=== PATIENT | male | born 1985 | race Caucasian/White ===

== ENCOUNTER 2016-08-19 10:32 | Emergency (ER) | payer SELFPAY ==
[2016-08-19 10:56] VITALS: BP 132/88
[2016-08-19] MEDS ORDERED: CEPHALEXIN 500 MG CAPSULE PO ONE (11:27)
[2016-08-19] MEDS ORDERED: SULFAMETHOXAZOLE/TRIMETHOPRIM 800-160 MG TABLET PO ONE (11:27)
[2016-08-19] MEDS ORDERED: IBUPROFEN 800 MG TABLET PO ONE (11:27)
--- NOTE | 2016-08-19 13:52 | ER Document Report ---
ED General - General Chief Complaint: Facial Swelling Stated Complaint: FACIAL SWELLING Time Seen by Provider: 08/19/16 11:19 Information source: Patient Cannot obtain history due to: Intoxicated, Uncooperative TRAVEL OUTSIDE OF THE [place] IN LAST 30 DAYS: No - HPI Patient complains to provider of: face drainage Onset: Other - unsure, possibly one week. Was originally 2 areas on his face that drained pus Onset/Duration: Gradual Quality of pain: No pain Associated symptoms: denies: Chills, Earache, Fever, Headache Exacerbated by: Denies Relieved by: Denies Similar symptoms previously: No Recently seen / treated by doctor: No Notes: Presents with a wound on the right part of the face and behind his right ear that is superficial with surrounding cellulitis - Related Data Allergies/Adverse Reactions: No Known Allergies Allergy (Verified 08/19/16 10:54) Past Medical History - Social History Smoking Status: Current Every Day Smoker Chew tobacco use (# tins/day): No Frequency of alcohol use: 2 beers this am Drug Abuse: None Family History: Malignancy Patient has suicidal ideation: No Patient has homicidal ideation: No Renal/ Medical History: Denies: Hx Peritoneal Dialysis Musculoskeltal Medical History: Reports Hx Arthritis - Immunizations Hx Diphtheria, Pertussis, Tetanus Vaccination: Yes Review of Systems - Review of Systems Notes: Unable to obtain medical history per patient given he is delayed while speaking. Discussed with his mother's medical history and she states that he has a learning disability and intellectual disability but denies any other medical history. She states that he is a chronic alcoholic -: Yes ROS unobtainable due to patient's medical condition Physical Exam - Vital signs Vitals: Temp Pulse Resp BP Pulse Ox 97.9 F 88 16 132/88 H 97 08/19/16 10:54 08/19/16 10:54 08/19/16 10:54 08/19/16 10:54 08/19/16 10:54 - General General appearance: Appears well, Alert In distress: None - HEENT Head: Normocephalic, Atraumatic. No: Abrasions, Dyer's sign, Ecchymosis, Open wounds, Racoon's eyes, Tenderness Eyes: Normal Conjunctiva: Normal Extraocular movements intact: Yes Eyelashes: Normal Pupils: PERRL Ears: Normal External canal: Normal Tympanic membrane: Normal Sinus: Normal Nasal: Normal Mouth/Lips: Normal Mucous membranes: Normal Teeth diagram: 1 - Dental caries and fractures are noted all throughout the mouth - Respiratory Respiratory status: No respiratory distress Chest status: Nontender Breath sounds: Normal Chest palpation: Normal - Cardiovascular Rhythm: Regular Heart sounds: Normal auscultation, S1 appreciated, S2 appreciated Murmur: No Gallop: None auscultated Pulses: Normal: Radial, Dorsalis pedis Normal capillary refill: Yes - Abdominal Inspection: Normal Distension: No distension Bowel sounds: Normal Tenderness: Nontender Organomegaly: No organomegaly - Extremities General upper extremity: Normal inspection, Nontender, Normal color, Normal ROM , Normal strength, Normal temperature General lower extremity: Normal inspection, Nontender, Normal color, Normal ROM , Normal strength, Normal temperature, Normal weight bearing. No: Alysa's sign - Neurological Neuro grossly intact: Yes Orientation: AAOx4 [place] Coma Scale Eye Opening: Spontaneous [place] Coma Scale Verbal: Oriented [place] Coma Scale Motor: Obeys Commands [place] Coma Scale Total: 15 Speech: Other - delayed Cranial nerves: Normal Cerebellar coordination: Normal Motor strength normal: LUE, RUE, LLE, RLE Additional motor exam normals: Equal electronic operator. No: Weakness Sensory: Normal - Psychological Associated symptoms: Flat affect - Skin Skin irregularity: other - abraision across the right cheeck with clear yellow drainage, area behind right ear with yellow purulent material. surrounding mild cellulitis Course - Re-evaluation Re-evalutation: 08/19/16 22:07 Patient is a 31-year-old male with hematoma stable, no acute distress afebrile. Patient appears to be altered for serum alcohol was sent and revealed to be a level of 248. CT of the head was normal, no evidence of leukocytosis or anemia noted on CBC. CMP without any evidence of hepatocellular damage, renal damage. Tox screen came back positive for amphetamines although patient denies any drug use. Site on the face concerning for cellulitis. Not sure of the mechanism of injury. Will treat with p.o. Keflex and Clinda. Patient has been discharged with a friend who is present at the bedside. - Vital Signs Vital signs: Temp Pulse Resp BP Pulse Ox 97.9 F 88 16 132/88 H 97 08/19/16 10:54 08/19/16 10:54 08/19/16 10:54 08/19/16 10:54 08/19/16 10:54 - Laboratory Result Diagrams: 08/19/16 11:35 08/19/16 13:45 Laboratory results interpreted by me: 08/19/16 08/19/16 11:35 13:45 RBC 4.16 L MCV 105 H MCH 35.6 H Monocytes % 14.5 H Potassium 3.5 L AST 61 H - Diagnostic Test Radiology reviewed: Image reviewed, Reports reviewed Discharge - Discharge Clinical Impression: Cellulitis Qualifiers: Site of cellulitis: face Qualified Code(s): L03.211 - Cellulitis of face Condition: Good Disposition: HOME, SELF-CARE Instructions: Cellulitis ([facility]), Chronic Alcoholism ([facility]), Acute Alcohol Intoxication ([facility]) Additional Instructions: Take your antibiotics as prescribed. Please follow-up with the physician listed below. If you do not live in [facility] please follow-up with the [facility] to get established with a community clinic for primary care. [facility] [address] [place] [id number] Prescriptions: Cephalexin Monohydrate [Keflex 500 mg Capsule] 500 mg PO QID #20 capsule Clindamycin HCl [Cleocin 150 mg Capsule] 150 mg PO TID 7 Days Referrals: [facility] [NO LOCAL MD] - Follow up as needed
[2016-08-19 14:33] LABS: ALANINE AMINOTRANSFERASE 62 U/L (21-72); ALBUMIN 4.5 g/dL (3.5-5.0); ALKALINE PHOSPHATASE 66 U/L (38-126); ANION GAP 16 (5-19); ASPARTATE AMINO TRANSFERASE 61 U/L (17-59); BILIRUBIN,DIRECT 0.3 mg/dL (0.0-0.4); BILIRUBIN,TOTAL 1.3 mg/dL (0.2-1.3); BLOOD UREA NITROGEN 10 mg/dL (7-20); CALCIUM 9.3 mg/dL (8.4-10.2); CARBON DIOXIDE 22 mmol/L (22-30); CHLORIDE 100 mmol/L (98-107); CREATININE RESULT 0.79 mg/dL (0.52-1.25); GLUCOSE 77 mg/dL (75-110); POTASSIUM 3.5 mmol/L (3.6-5.0); SODIUM 138.2 mmol/L (137-145); TOTAL PROTEIN 7.5 g/dL (6.3-8.2)
--- NOTE | 2016-08-19 14:33 | RADIOLOGY REPORT (SQ) ---
EXAM DESCRIPTION: CT HEAD WITHOUT COMPLETED DATE/TIME: 08/19/2016 2:18 pm REASON FOR STUDY: lethargic COMPARISON: None. TECHNIQUE: Axial images acquired through the brain without intravenous contrast. Images reviewed wi th bone, brain and subdural windows. Images stored on PACS. All CT scanners at this facility use dose modulation, iterative reconstruction, and/or weight based d osing when appropriate to reduce radiation dose to as low as reasonably achievable (ALARA). [facility]: Dose Right [facility]: CareDose [facility]: Dose Right [facility]: Teradose 4D [facility]: Smart Bokecc RADIATION DOSE: Up-to-date CT equipment and radiation dose reduction techniques were employed. CTDIv ol: 64.6 mGy. DLP: 1680 mGy-cm. mGy. LIMITATIONS: None. FINDINGS: VENTRICLES: Normal size and contour. CEREBRUM: No masses. No hemorrhage. No midline shift. Normal nina/white matter differentiation. N o evidence for acute infarction. CEREBELLUM: No masses. No hemorrhage. No alteration of density. No evidence for acute infarction. EXTRAAXIAL SPACES: No fluid collections. No masses. ORBITS AND GLOBE: No intra- or extraconal masses. Normal contour of globe without masses. CALVARIUM: No fracture. PARANASAL SINUSES: Minimal mucosal thickening. No air-fluid levels. SOFT TISSUES: No mass or hematoma. OTHER: No other significant finding. IMPRESSION: 1. Normal-appearing brain. 2. Minimal mucosal thickening in the sinuses. TECHNICAL DOCUMENTATION: JOB ID: [id number] Quality ID # [id number]: Final reports with documentation of one or more dose reduction techniques (e.g., Au tomated exposure control, adjustment of the mA and/or kV according to patient size, use of iterative reconstruction technique) 2010 [employer]- All Rights Reserved
[2016-08-19 14:40] LABS: ABSOLUTE BASOPHILS # (AUTO) 0.1 10^3/uL (0.0-0.2); ABSOLUTE EOSINOPHILS # (AUTO) 0.2 10^3/uL (0.0-0.6); ABSOLUTE LYMPHOCYTES (AUTO) 2.1 10^3/uL (0.5-4.7); ABSOLUTE MONOCYTES (AUTO) 1.3 10^3/uL (0.1-1.4); ABSOLUTE NEUT (AUTO) 5.2 10^3/uL (1.7-8.2); BASOPHILS % (AUTO) 0.8 % (0-2); EOSINOPHILS % (AUTO) 2.7 % (0-6); HEMATOCRIT 43.7 % (37.9-51.0); HEMOGLOBIN 14.8 g/dL (13.5-17.0); HGB HCT DIFFERENCE 0.7; LYMPHOCYTES % (AUTO) 23.2 % (13-45); MEAN CORPUSCULAR HEMOGLOBIN 35.6 pg (27.0-33.4); MEAN CORPUSCULAR HGB CONC 33.8 g/dL (32.0-36.0); MEAN CORPUSCULAR VOLUME 105 fl (80-97); MONOCYTES % (AUTO) 14.5 % (3-13); RED BLOOD COUNT 4.16 10^6/uL (4.35-5.55); RED CELL DISTRIBUTION WIDTH 12.4 % (11.5-14.0); SEGMENTED NEUTROPHILS % (AUTO) 58.8 % (42-78); WHITE BLOOD COUNT 8.9 10^3/uL (4.0-10.5)
[2016-08-19 15:14] LABS: APPEARANCE,URINE CLEAR; BILIRUBIN,URINE NEGATIVE (NEGATIVE); GLUCOSE, URINE NEGATIVE (NEGATIVE); KETONES,URINE NEGATIVE (NEGATIVE); LEUKOCYTE ESTERASE,URINE NEGATIVE (NEGATIVE); NITRITE,URINE NEGATIVE (NEGATIVE); PROTEIN,URINE NEGATIVE (NEGATIVE); URINE SPECIFIC GRAVITY 1.003; UROBILINOGEN,URINE NEGATIVE mg/dL (<2.0)
[2016-08-19 15:30] LABS: URINE BARBITURATES SCREEN NEGATIVE; URINE METHADONE SCREEN NEGATIVE; URINE OPIATES LOW NEGATIVE; URINE PHENCYCLIDINE SCREEN NEGATIVE
== END 2016-08-19 15:50 | disposition home or self-care (01) ==
LOC: ER 10:32
DX: L03.211 Cellulitis of face (principal); K02.9 Dental caries, unspecified; F17.200 Nicotine dependence, unspecified, uncomplicated
CPT/HCPCS: 36415; 70450; 80053; 80307; 81001; 82140; 85025; 99284

== ENCOUNTER 2019-02-28 14:16 | Emergency (ER) | payer SELFPAY ==
[2019-02-28 14:35] VITALS: BP 138/90
--- NOTE | 2019-02-28 14:50 | ER Document Report ---
ED Medical Screen (RME) - General Chief Complaint: Leg Swelling Stated Complaint: LEG SWELLING Time Seen by Provider: 02/28/19 14:42 Mode of Arrival: Wheelchair Information source: Patient Notes: This 33-year-old male presents emergency department with complaints of left foot pain for the past 3 months. Patient is very emotional tearful. Reports [place] in [place]. He denies trauma denies history of gout. Patient does report he has been drinking ETOH today. Left foot swollen tender to touch. I have greeted and performed a rapid initial assessment of this patient. A comprehensive ED assessment and evaluation of the patient, analysis of test results and completion of the medical decision making process will be conducted by additional ED providers. TRAVEL OUTSIDE OF THE [place] IN LAST 30 DAYS: No - Related Data Allergies/Adverse Reactions: No Known Allergies Allergy (Verified 08/19/16 10:54) Past Medical History - Social History Frequency of alcohol use: Heavy Renal/ Medical History: Denies: Hx Peritoneal Dialysis Musculoskeltal Medical History: Reports Hx Arthritis - Immunizations Hx Diphtheria, Pertussis, Tetanus Vaccination: Yes Physical Exam - Vital signs Vitals: Temp Pulse Resp BP Pulse Ox 97.8 F 87 16 138/90 H 98 02/28/19 14:28 02/28/19 14:28 02/28/19 14:28 02/28/19 14:28 02/28/19 14:28 Course - Vital Signs Vital signs: Temp Pulse Resp BP Pulse Ox 97.8 F 87 16 138/90 H 98 02/28/19 14:28 02/28/19 14:28 02/28/19 14:28 02/28/19 14:28 02/28/19 14:28
[2019-02-28 15:24] LABS: ABSOLUTE BASOPHILS # (AUTO) 0.1 10^3/uL (0.0-0.2); ABSOLUTE EOSINOPHILS # (AUTO) 0.2 10^3/uL (0.0-0.6); ABSOLUTE LYMPHOCYTES (AUTO) 3.2 10^3/uL (0.5-4.7); ABSOLUTE MONOCYTES (AUTO) 0.6 10^3/uL (0.1-1.4); ABSOLUTE NEUT (AUTO) 4.6 10^3/uL (1.7-8.2); BASOPHILS % (AUTO) 1.1 % (0-2); LYMPHOCYTES % (AUTO) 36.5 % (13-45); MEAN CORPUSCULAR HEMOGLOBIN 37.2 pg (27.0-33.4); MEAN CORPUSCULAR HGB CONC 34.8 g/dL (32.0-36.0); MEAN CORPUSCULAR VOLUME 107 fl (80-97); MONOCYTES % (AUTO) 7.3 % (3-13); PLATELET COUNT 281 10^3/uL (150-450); RED BLOOD COUNT 4.32 10^6/uL (4.35-5.55); RED CELL DISTRIBUTION WIDTH 13.1 % (11.5-14.0); SEGMENTED NEUTROPHILS % (AUTO) 53.1 % (42-78); TOTAL CELLS COUNTED % (AUTO) 100 %; WHITE BLOOD COUNT 8.7 10^3/uL (4.0-10.5)
--- NOTE | 2019-02-28 15:39 | RADIOLOGY REPORT (SQ) ---
EXAM DESCRIPTION: FOOT LEFT COMPLETE COMPLETED DATE/TIME: 02/28/2019 2:20 pm REASON FOR STUDY: pain swelling for 3 months COMPARISON: None. NUMBER OF VIEWS: Three views. TECHNIQUE: AP, lateral and oblique radiographic images acquired of the left foot. LIMITATIONS: None. FINDINGS: MINERALIZATION: Normal. BONES: No acute fracture or dislocation. No worrisome bone lesions. JOINTS: No effusions. SOFT TISSUES: No soft tissue swelling. No foreign body. OTHER: No other significant finding. IMPRESSION: NEGATIVE STUDY OF THE LEFT FOOT. NO RADIOGRAPHIC EVIDENCE OF ACUTE INJURY. TECHNICAL DOCUMENTATION: JOB ID: [id number] [employer]- All Rights Reserved Reading location - IP/workstation name: [email or web address]
[2019-02-28 15:40] LABS: ALBUMIN 4.9 g/dL (3.5-5.0); ALCOHOL 292 mg/dL (NONE DETECTED); ALKALINE PHOSPHATASE 78 U/L (38-126); ANION GAP 14 (5-19); ASPARTATE AMINO TRANSFERASE 62 U/L (17-59); BILIRUBIN,DIRECT 0.3 mg/dL (0.0-0.4); BILIRUBIN,TOTAL 0.4 mg/dL (0.2-1.3); BLOOD UREA NITROGEN 7 mg/dL (7-20); CALCIUM 9.9 mg/dL (8.4-10.2); CARBON DIOXIDE 28 mmol/L (22-30); CHLORIDE 103 mmol/L (98-107); GLUCOSE 90 mg/dL (75-110); TOTAL PROTEIN 8.4 g/dL (6.3-8.2)
--- NOTE | 2019-02-28 16:39 | ER Document Report ---
ED General - General Chief Complaint: Leg Swelling Stated Complaint: LEG SWELLING Time Seen by Provider: 02/28/19 14:42 Mode of Arrival: Wheelchair Information source: Patient TRAVEL OUTSIDE OF THE [place] IN LAST 30 DAYS: No - HPI Onset: Other - patient has had left lateral foot pain for months and left foot swelling for several days Onset/Duration: Gradual Quality of pain: Pressure Severity: Moderate Pain Level: 2 Associated symptoms: Other - left lateral foot/5th toe pain, left foot swelling Exacerbated by: Movement, Walking, Other - palpation of left foot Relieved by: Remaining still Similar symptoms previously: Yes Recently seen / treated by doctor: No Notes: 33 year old male with no known PMH here for pain in his left lateral foot/5th toe for months and swelling in his left foot for days. The patient denies trauma to his left foot. The patient denies erythema or warmth of any joints in his lower extremity. The patient denies fevers, chills, sweats, nausea, vomiting. The patient can ambulate but he has some pain doing so. - Related Data Allergies/Adverse Reactions: No Known Allergies Allergy (Verified 08/19/16 10:54) Past Medical History - General Information source: Patient - Social History Smoking Status: Current Every Day Smoker Frequency of alcohol use: Heavy Drug Abuse: None Lives with: Alone Family History: Reviewed & Not Pertinent, Malignancy Patient has suicidal ideation: No Patient has homicidal ideation: No - Past Medical History Cardiac Medical History: Reports: None Pulmonary Medical History: Reports: None EENT Medical History: Reports: None Neurological Medical History: Reports: None Endocrine Medical History: Reports: None Renal/ Medical History: Reports: None. Denies: Hx Peritoneal Dialysis Malignancy Medical History: Reports None GI Medical History: Reports: None Musculoskeletal Medical History: Reports Hx Arthritis Skin Medical History: Reports None Psychiatric Medical History: Reports: None Traumatic Medical History: Reports: None Infectious Medical History: Reports: None Past Surgical History: Reports: None - Immunizations Hx Diphtheria, Pertussis, Tetanus Vaccination: Yes Review of Systems - Review of Systems Constitutional: No symptoms reported EENT: No symptoms reported Cardiovascular: No symptoms reported Respiratory: No symptoms reported Gastrointestinal: No symptoms reported Genitourinary: No symptoms reported Male Genitourinary: No symptoms reported Musculoskeletal: Other - left foot swelling, left lateral foot/5th toe pain Skin: No symptoms reported Hematologic/Lymphatic: No symptoms reported Neurological/Psychological: No symptoms reported Physical Exam - Vital signs Vitals: Temp Pulse Resp BP Pulse Ox 97.8 F 87 16 138/90 H 98 02/28/19 14:28 02/28/19 14:28 02/28/19 14:02/28/19 14:02/28/19 14:28 - Notes Notes: GENERAL: Not well groomed, well-nourished and in no acute distress. HEAD: Atraumatic, normocephalic. EYES: Pupils equal round and reactive to light, extraocular movements intact, sclera anicteric, conjunctiva are normal. ENT: Nares patent, oropharynx clear without exudates. Moist mucous membranes. NECK: Normal range of motion, supple without lymphadenopathy or JVD. LUNGS: Breath sounds clear to auscultation bilaterally and equal. No wheezes rales or rhonchi. HEART: Regular rate and rhythm without murmurs, rubs or gallops. ABDOMEN: Soft, nontender, normoactive bowel sounds. No guarding, no rebound. No masses appreciated. EXTREMITIES: Left foot is swollen and has pitting edema to just above his ankle. No erythema or warmth. No bony tenderness on palpation. Normal range of motion. No clubbing or cyanosis. 2+ DP and PT pulses on left NEUROLOGICAL: Cranial nerves II through XII grossly intact. Normal speech, normal gait. PSYCH: Normal mood, normal affect. SKIN: Warm, Dry, normal turgor, no rashes or lesions noted. Course - Re-evaluation Re-evalutation: 02/28/19 16:53 The patient has had pain in his left lateral foot for months. His left foot has been swollen for several days and this is new for him. Patient denies trauma. Gout seems unlikely since no redness or warmth of any joint. Sprain or strain is possible and so is osteoarthritis. Will have patient use RICE (rest, ice, compression, elevation) and will prescribe NSAIDs. Xrays show no acute process. Will refer to Orthopedics. 02/28/19 16:57 - Vital Signs Vital signs: Temp Pulse Resp BP Pulse Ox 97.8 F 87 16 138/90 H 98 02/28/19 14:28 02/28/19 14:28 02/28/19 14:02/28/19 14:02/28/19 14:28 - Laboratory Result Diagrams: 02/28/19 15:05 02/28/19 15:05 Laboratory results interpreted by me: 02/28/19 02/28/19 15:05 15:05 RBC 4.32 L MCV 107 H MCH 37.2 H AST 62 H Total Protein 8.4 H - Diagnostic Test Radiology reviewed: Image reviewed, Reports reviewed Discharge - Discharge Clinical Impression: Foot pain, left, Swelling of left foot Condition: Stable Disposition: HOME, SELF-CARE Instructions: Sprain ([facility]), Arthritis ([facility]) Additional Instructions: Ice your foot and keep it elevated when sitting or laying down. Use an IRMA wrap to help with swelling as well. Use Naproxen as prescribed. Follow up with an Orthopedic Surgeon such as Dr. Vela. Prescriptions: Naproxen 500 mg PO BID PRN #14 tablet PRN Reason: Referrals: EFREN VELA JR, DO [ACTIVE PROVISIONAL STAFF] - Follow up as needed
[2019-02-28] MEDS ORDERED: KETOROLAC TROMETHAMINE 10 MG TABLET PO ONE (16:52)
== END 2019-02-28 17:21 | disposition home or self-care (01) ==
LOC: ER 14:16
DX: M79.672 Pain in left foot (principal); M79.89 Other specified soft tissue disorders; F17.200 Nicotine dependence, unspecified, uncomplicated
CPT/HCPCS: 99283; 36415; 80307; 85025; 80053; 73630; J3490